=== PATIENT | female | born 1965 | race Caucasian/White ===

== ENCOUNTER 2017-07-19 06:35 | Day surgery (SDC) | payer OTHER ==
[~2017-07-19 06:35] MED LIST: ATACAND16 MG PO; CEFADROXIL500 MG PO; ISOSORBIDE MONO60 MG PO; LOSARTAN-HCTZ1 EAC2 PO; LOZOL2.5 MG PO; PERCOCET 5-3251 EACH PO; SINGULAIR 10MG10 MG PO; VALSARTAN-HCTZ1 EAC3 PO; XARELTO10 MG PO
[2017-07-19] MEDS ORDERED: ULTRACET PO (13:00)
[2017-07-19] MEDS ORDERED: DUI500 PO (13:00)
== END 2017-07-19 18:40 | disposition home or self-care (01) ==
LOC: CIR.AMB 06:35
DX: M24.562 Contracture, left knee (principal); M17.12 Unilateral primary osteoarthritis, left knee; I10 Essential (primary) hypertension; J45.909 Unspecified asthma, uncomplicated; Z96.652 Presence of left artificial knee joint

== ENCOUNTER 2017-10-29 11:51 | Emergency (ER) | payer OTHER ==
[~2017-10-29] VITALS: Ht 157.5 cm; Wt 68.0 kg
[~2017-10-29 11:51] MED LIST changes: +DUI500 PO; +ULTRACET PO
[2017-10-29] MEDS ORDERED: IMDUR (12:15)
[2017-10-29] MEDS ORDERED: DIOVAN HCT 3201 EAC1 (12:17)
== END 2017-10-29 16:58 | disposition home or self-care (01) ==
LOC: ER 11:51
DX: N21.9 Calculus of lower urinary tract, unspecified (principal)

== ENCOUNTER 2017-10-31 11:30 | Inpatient (IN) | payer OTHER ==
[~2017-10-31] VITALS: Ht 157.5 cm; Wt 68.0 kg
[~2017-10-31 11:30] MED LIST changes: +DIOVAN HCT 3201 EAC1; +IMDUR
[2017-11-01] MEDS ORDERED: ULTRACET PO (11:20)
[2017-11-01] MEDS ORDERED: KEFLEX500 MG PO (11:20)
[2017-11-01] MEDS ORDERED: PYRIDIUM100 M1 PO (11:21)
== END 2017-11-01 16:10 | disposition home or self-care (01) | DRG 694 ==
LOC: ER 11:30 → SURH 12:53
PROVIDERS: Urology
PROC: 0T768DZ Dilation of Right Ureter with Intraluminal Device, Via Natural or Artificial Opening Endoscopic (ICD-10-PCS; 2017-11-01)
PROC: BT1DZZZ Fluoroscopy of Right Kidney, Ureter and Bladder (ICD-10-PCS; 2017-11-01)
PROC: 0TF68ZZ Fragmentation in Right Ureter, Via Natural or Artificial Opening Endoscopic (ICD-10-PCS; principal; 2017-11-01 14:00)
DX: N13.2 Hydronephrosis with renal and ureteral calculous obstruction (principal); I10 Essential (primary) hypertension